=== PATIENT | male | born 1980 | race Caucasian/White ===

== ENCOUNTER 2018-10-25 00:05 | Inpatient (IN) | payer SELFPAY ==
[~2018-10-25] VITALS: Ht 177.8 cm; Wt 66.5 kg
[2018-10-25] VITALS (22 sets, daily range): BP systolic 76–147; BP diastolic 53–112
[2018-10-25] MEDS ORDERED: PROPOFOL DRIP (ICU) 100 ML IV STA (00:07)
--- NOTE | 2018-10-25 00:07 | NUR ---
DOCTOR DANICA GAVE 100 ML OF DIPRIVAN IVP. AT 0007
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
--- NOTE | 2018-10-25 00:30 | NUR ---
PT. HAS HAD 2 LITERS OF NORMAL SALINE INFUSED. ONE WAS BY EMS AND ONE BAG INFUSED WIDE OPEN AT 0030.
--- NOTE | 2018-10-25 00:45 | NUR ---
AT 0000 THE PT WAS BROUGHT BY EMS TO ER3. HE HAD A 7.5 TUBE ALREADY PLACED ECTO30, 24 AT THIS LIPS. PT. HAD BEEN FOUND ON THE COUCH BY FAMILY AND WAS UNRESPONSIVE. EMS REPORTED THE PATIENT HAD RECEIVED 120 OS SUCCS, AND .8 MG OF VEC. AT 2355. HE HAS AN IV IN THE RIGHT AC WITH NORMAL SALINE WIDE OPEN AND IT IS A 16 GAUGE, SALINE LOCKED. 0001 = DOCTOR DANICA IN TO SEE THE PATIENT. ORDERS WERE WRITTEN. DIPRIVAN 100 MG. GIVEN IVP BY DOCTOR MISHRA AT 0030. 0015 NG TUBE PLACED 0031 UNDERWOOD WAS PLACED DRAINING CLEAR LIGHT YELLOW URINE. AND UA WAS SENT TO THE LAB. LUNG SOUNDS ARE COARSE, FREQUENT SUCTIONING BE DONE. PT. WAS TAKEN TO CT VIA CART, NURSING STAFF, AND MONITORS. 0102 - VERSED 5 MG. IVP GIVEN THE PATIENT IS ATTEMPTING TO MOVED AROUND WHILE HE HAS BEEN SUCTIONED AND VENTILATED.
[2018-10-25] MEDS ORDERED: MIDAZOLAM 5 MG/5 ML (VERSED) VIAL ONE (00:59)
[2018-10-25] MEDS ORDERED: MIDAZOLAM 5 MG/5 ML (VERSED) VIAL IVP ONE (01:00)
--- NOTE | 2018-10-25 01:00 | NUR ---
PT. WAS GIVEN 5 MG. VERSED IVP PER DOCTORS ORDERS.
[2018-10-25] MEDS ORDERED: AMPICILLIN/SULBACTAM INJECTION 3 GM in NS (IVPB) 100 ML IV STA (01:02)
--- NOTE | 2018-10-25 01:09 | NUR ---
INCREASED THE RATE OF THE DIPRIVAN TO 20 ML PER HOUR VIA PUMP DO TO THE PATIENT FIGHTING THE ET TUBE VENTILATION.
[2018-10-25] MEDS ORDERED: KETAMINE HCL 100 MG/ML 5 ML VIAL IV STA (01:10)
--- NOTE | 2018-10-25 01:15 | NUR ---
DOCTOR GAVE 1.5 ML OF KETAMINE IVP
--- NOTE | 2018-10-25 01:34 | NUR ---
Doctor Villaseñor gave 150 mg. Ketamine ivp at 0134
--- NOTE | 2018-10-25 01:48 | NUR ---
Doctor Kasi gave 200 mg. Ketamine ivp
--- NOTE | 2018-10-25 01:48 | NUR ---
Cyndi CHOPRA pulled the 1000 cc bag of Normal Saline from the iv crash cart tray and it was hung by EMS and continued in route.
--- NOTE | 2018-10-25 01:55 | NUR ---
NG TUBE IS IN THE RIGHT NARE. 0130 PT. ALERT BREATHING TRYING TO PULL OUT THE TUBE AND THE UNDERWOOD. 0134 pT. WAS GIVEN 150 ML OF KETAMINE IV 0148 PT. GIVEN 200 MG. KETAMINE
[2018-10-25 02:44] LABS: COLOR,URINE PALE YELLOW
[2018-10-25 02:45] LABS: BACTERIA,URINE NEGATIVE /HPF; BILIRUBIN,URINE NEGATIVE (NEGATIVE); CLARITY,URINE CLEAR; GLUCOSE, URINE (UA) NEGATIVE (NEGATIVE); KETONES,URINE NEGATIVE (NEGATIVE); LEUKOCYTE ESTERASE ,URINE NEGATIVE (NEGATIVE); NITRITE,URINE NEGATIVE (NEGATIVE); PH,URINE 7.5 (5-9); PROTEIN,URINE NEGATIVE (NEGATIVE); UROBILINOGEN,URINE 0.2 MG/DL (NORMAL); WBC,URINE RARE /HPF
[2018-10-25] MEDS: D5 1/2 NS 1000 ML IV SOLUTION 1,000 ML IV SCH ×2 (03:00→10:14)
[2018-10-25] MEDS ORDERED: PROPOFOL DRIP (ICU) 100 ML IV SCH (03:15)
[2018-10-25] MEDS ORDERED: NS (IVPB) 50 ML ONE (03:19)
[2018-10-25] MEDS ORDERED: LORazepam INJ 2 MG/ML (ATIVAN) VIAL ONE (03:20)
[2018-10-25] MEDS ORDERED: fentaNYL INJECTION 100 MCG/2 ML AMP ONE (03:20)
[2018-10-25 03:21] LABS: BASOPHILS % (AUTO) 0 % (0-10); EOSINOPHILS # (AUTO) 0.3 10^3/uL (0.0-0.3); EOSINOPHILS % (AUTO) 2 % (0-10); HEMATOCRIT 43 % (40-54); HEMOGLOBIN 14.8 G/DL (13.3-17.7); LYMPHOCYTES # (AUTO) 1.4 X 10^3 (1.0-4.0); LYMPHOCYTES % (AUTO) 9 % (12-44); MEAN CORPUSCULAR HEMOGLOBIN 31 PG (25-34); MEAN CORPUSCULAR HGB CONC 34 G/DL (32-36); MEAN CORPUSCULAR VOLUME 89 FL (80-99); MEAN PLATELET VOLUME 10.7 FL (7.4-10.4); MONOCYTES # (AUTO) 1.2 X 10^3 (0.0-1.0); MONOCYTES % (AUTO) 8 % (0-12); NEUTROPHILS # (AUTO) 12.4 X 10^3 (1.8-7.8); NEUTROPHILS % (AUTO) 81 % (42-75); PLATELET COUNT 193 10^3/uL (130-400); RED CELL DISTRIBUTION WIDTH 12.9 % (10.0-14.5); WHITE BLOOD COUNT 15.3 10^3/uL (4.3-11.0)
[2018-10-25 03:23] LABS: ABG BASE EXCESS -4.4 MMOL/L (-2.5-2.5); ABG OXYGEN SATURATION 88 % (94-100); ABG PCO2 48 MMHG (35-45); ABG PO2 64 MMHG (79-93); ABG TCO2 23.1 MMOL/L (21.0-31.0)
[2018-10-25 03:24] LABS: ABG PH 7.27 (7.37-7.43); ALLENS TEST YES-POS; INSPIRED O2 50%; VENTILATOR YES
[2018-10-25 03:26] LABS: AMPHETAMINE SCREEN, URINE NEGATIVE (NEGATIVE); BARBITURATE SCREEN URINE POSITIVE (NEGATIVE); BENZODIAZEPINES SCREEN URINE NEGATIVE (NEGATIVE); CANNABINOID SCREEN, URINE POSITIVE (NEGATIVE); COCAINE SCREEN URINE NEGATIVE (NEGATIVE); METHADONE STAT NEGATIVE (NEGATIVE); METHAMPHETAMINE SCREEN URINE S NEGATIVE (NEGATIVE); OPIATE SCREEN URINE NEGATIVE (NEGATIVE); OXYCODONE STAT NEGATIVE (NEGATIVE); PROPOXYPHENE STAT NEGATIVE (NEGATIVE); TRICYCLIC ANTIDEPRESSANTS SCRE NEGATIVE (NEGATIVE)
[2018-10-25] MEDS ORDERED: RT-ALBUTEROL SULF 2.5 MG/3 ML PRE-MIX VIAL INH PRN (03:30)
[2018-10-25 03:37] LABS: BAND NEUTROPHILS 3 %; LYMPHOCYTES % (MANUAL) 7 %; NEUTROPHILS % (MANUAL) 82 %
[2018-10-25 03:38] LABS: BASOPHILS % (MANUAL) 0 %; CRENATED RBC SLIGHT; EOSINOPHILS % (MANUAL) 0 %; MONOCYTES % (MANUAL) 4 %; POIKILOCYTOSIS SLIGHT; REACTIVE LYMPHOCYTES 4 %
[2018-10-25 03:42] LABS: ALANINE AMINOTRANSFERASE 11 U/L (0-55); ALBUMIN 4.2 GM/DL (3.2-4.5); ALKALINE PHOSPHATASE 102 U/L (40-136); BILIRUBIN,DIRECT 0.2 MG/DL (0.0-0.3); BILIRUBIN,INDIRECT 0.1 MG/DL; BILIRUBIN,TOTAL 0.3 MG/DL (0.1-1.0); BUN/CREATININE RATIO 13; CALCIUM 8.4 MG/DL (8.5-10.1); CARBON DIOXIDE 20 MMOL/L (21-32); CHLORIDE 115 MMOL/L (98-107); CREATININE SERUM 0.84 MG/DL (0.60-1.30); GFR ESTIMATED > 60; GLUCOSE 92 MG/DL (70-105); MAGNESIUM 2.4 MG/DL (1.8-2.4); PHOSPHORUS 3.5 MG/DL (2.3-4.7); POTASSIUM 3.5 MMOL/L (3.6-5.0); SODIUM 146 MMOL/L (135-145); TOTAL PROTEIN 6.5 GM/DL (6.4-8.2); TRIGLYCERIDES 75 MG/DL (<150)
[2018-10-25 03:44] LABS: ACETAMINOPHEN < 10 UG/ML (10-30)
[2018-10-25] MEDS ORDERED: DEXMEDETOMIDINE INJECTION 200 MCG in NS (IVPB) 50 ML IV SCH (03:45)
[2018-10-25] MEDS ORDERED: fentaNYL INJECTION 100 MCG/2 ML AMP IV PRN (03:45)
[2018-10-25] MEDS ORDERED: fentaNYL INJECTION 100 MCG/2 ML AMP IV ONE (03:45)
[2018-10-25] MEDS ORDERED: LORazepam INJ 2 MG/ML (ATIVAN) VIAL IV PRN ×2 (03:45→05:30)
--- NOTE | 2018-10-25 04:08 | NUR ---
This RN called Poison control to notify of pt overdose.
[2018-10-25] MEDS: PANTOPRAZOLE 40 MG (PROTONIX) VIAL IV SCH ×2 (04:16→08:03)
[2018-10-25] MEDS: POTASSIUM CL 10MEQ/50ML IVPB 50 ML IV SCH ×5 (04:16→07:12)
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
[2018-10-25] MEDS ORDERED: fentaNYL (OMNICELL DRIP KIT ONLY) 250 MCG/5 ML AMP ONE (04:59)
[2018-10-25] MEDS ORDERED: NS (IVPB) 100 ML ONE (04:59)
[2018-10-25] MEDS: LACTATED RINGERS 1,000 ML IV SCH ×2 (05:00→06:37)
[2018-10-25] MEDS ORDERED: MAGNESIUM 1 GM/100 ML IVPB 100 ML IV ONE (05:00)
[2018-10-25 05:17] LABS: CREATINE KINASE 390 U/L (30-200); SALICYLATE < 5.0 MG/DL (5.0-20.0)
[2018-10-25] MEDS ORDERED: NORMAL SALINE INJ SCH (05:30)
[2018-10-25] MEDS ORDERED: FENTANYL INJ SCH (05:30)
[2018-10-25] MEDS ORDERED: POTASSIUM CL 10MEQ/50ML IVPB 50 ML IV SCH (06:00)
[2018-10-25] MEDS ORDERED: KCL 20 MEQ TAB (K-DUR) PO SCH (06:00)
[2018-10-25] MEDS ORDERED: fentaNYL INJECTION 500 MCG in NS (IVPB) 100 ML IV SCH (06:00)
[2018-10-25] MEDS ORDERED: MAGNESIUM 1 GM/100 ML IVPB 100 ML IV SCH (06:00)
[2018-10-25] MEDS ORDERED: LACTATED RINGERS 1,000 ML IV SCH (06:30)
[2018-10-25] MEDS ORDERED: MIDAZOLAM 2 MG/2 ML (VERSED) VIAL ONE (07:00)
[2018-10-25] MEDS ORDERED: LACTATED RINGERS 1,000 ML IV ONE (07:00)
--- NOTE | 2018-10-25 07:13 | Diagnostic Imaging Report ---
INDICATION: Respiratory failure Portable chest 2:59 AM There is an ET tube projecting over the trachea. NG tube enters the stomach. There is some right upper lobe atelectasis. IMPRESSION: Right upper lobe atelectasis has increased compared to previous days' comparison exam. Dictated by: Dictated on workstation # [id number]
[2018-10-25] MEDS ORDERED: MIDAZOLAM 5 MG/5 ML (VERSED) VIAL IVP NR (07:15)
--- NOTE | 2018-10-25 07:29 | History & Physical-Hospitalist ---
History of Present Illness HPI/Chief Complaint Pt is a 38yoCM who presented to the ER via EMS for respiratory failure potentially from overdose. He is intuabted and sedated and unable to provide any history. Per notes he has a known seizure disorder for which he takes phenobarbital. He made a comment to his girlfriend yesterday about "going to see his dad" (who is ). He was found later to be unresponsive and EMS was called and intubated him in the field. He was brought to the ER for evaluation and ultimately admitted for respiratory failure. Poison control was contacted and recommended q4 hour EKGs to monitor for QT prolongation. Dr Judd was consulted for vent management. Per Dr Judd family brought in prescription bottles and it appears patient has appropriate number of phenobarbital in his bottle but has also been noncompliant with meds so unsure how much medicine was potentially taken. Exam Limitations: clinical condition Date Seen 10/25/18 Time Seen by a Provider: 07:24 Attending Physician Luis Barkley MD PCP No,Local Physician Referring Physician Date of Admission Oct 25, 2018 at 02:08 Home Medications & Allergies Home Medications Reviewed patient Home Medication Reconciliation performed by pharmacy medication reconciliations distance learning technician and/or nursing. Patients Allergies have been reviewed. Allergies Allergies Coded Allergies morphine (Verified Allergy, Unknown, 10/25/18) Past Tdcftti-Wdvxiq-Yxprfe Hx Past Med/Social Hx: Reviewed Nursing Past Med/Soc Hx Patient Social History Marrital Status: single Smoking Status: Unknown if Ever Smoked Recent Foreign Travel: No Contact w/other who traveled: No Recent Infectious Disease Expo: No Past Medical History Neurological: Seizure Disorder Family History Reviewed Nursing Family Hx inubated- unable to provide FH Review of Systems ROS-Unable to Obtain: intubated Constitutional: see HPI Physical Exam Physical Exam Vital Signs Vital Signs - First Documented 10/25/18 10/25/18 10/25/18 00:05 00:07 03:05 Temp 97.2 Pulse 58 Resp 24 B/P (MAP) 151/103 (119) Pulse Ox 95 O2 Delivery Ambu-Bag O2 Flow Rate 15.00 FiO2 100 Capillary Refill : Less Than 3 Seconds Height, Weight, BMI Height: 5'10.00" Weight: 176lbs. oz. 79.208213uu; BMI Method:Estimated General Appearance: WD/WN, Other (intubated- being leak patcher for bronch) HEENT: Normal ENT Inspection, Moist Mucous Membranes, Other (OG in place) Neck: Normal Inspection, Non Tender Respiratory: Rhonci (R>L), Other (on vent) Cardiovascular: No JVD, No Murmur, Normal Peripheral Pulses, Bradycardia Gastrointestinal: Normal Bowel Sounds, Non Tender, Soft Genital/Rectal: Other (hart in place) Extremity: Normal Inspection, No Pedal Edema Neurologic/Psychiatric: Other (sedated, unresponsive) Skin: Normal Color, Warm/Dry Results Results/Procedures Labs Laboratory Tests 10/25/18 03:15 Patient resulted labs reviewed. Imaging: Reviewed Imaging Report Assessment/Plan Admission Diagnosis Acute Respiratory failure Admission Status: Inpatient Order (span 2 midnights) Reason for Inpatient Admission: ON vent Diagnosis/Problems Diagnosis/Problems (1) Acute respiratory failure Status: Acute Assessment & Plan: Intubated in the field Dr Judd consulted, appreciate recs Currently on PEEP of [address] If able to decrease Dr Judd considering wean Unsure if etiology due to overdose or possible seizure Qualifiers: Respiratory failure complication: hypoxia and hypercapnia Qualified Codes: J96.01 - Acute respiratory failure with hypoxia; J96.02 - Acute respiratory failure with hypercapnia (2) Seizure disorder Assessment & Plan: Treated with phenobarbital as an outpatient (3) Pneumonia Assessment & Plan: Bronch to be done today by Dr Judd Await cultures Add Zosyn following bronch This is not sepsis Qualifiers: Pneumonia type: aspiration pneumonia Aspiration pneumonia type: unspecified Laterality: right Lung location: upper lobe of lung Qualified Codes: J69.0 - Pneumonitis due to inhalation of food and vomit (4) Drug overdose Status: Acute Assessment & Plan: Unsure of how much phenobarbital was taken or if he actually overdoses given accurate pill count on current rx Level ordered UDS positive for it (which is appropriate) Poison Control contacted Qualifiers: Encounter type: initial encounter Injury intent: undetermined intent Qualified Codes: T50.904A - Poisoning by unspecified drugs, medicaments and biological substances, undetermined, initial encounter SARTHAK HSU MD Oct 25, 2018 07:29
[2018-10-25] MEDS ORDERED: PIPERACILLIN/TAZO 4.5 GM/NS 100 ML IV NR ×2 (07:45)
[2018-10-25] MEDS: RT-ALBUTEROL SULF 2.5 MG/3 ML PRE-MIX VIAL INH SCH ×3 (08:00→11:49)
[2018-10-25 08:02] LABS: ALANINE AMINOTRANSFERASE 10 U/L (0-55); ALBUMIN 3.3 GM/DL (3.2-4.5); ALKALINE PHOSPHATASE 81 U/L (40-136); BILIRUBIN,DIRECT 0.2 MG/DL (0.0-0.3); BILIRUBIN,INDIRECT 0.2 MG/DL; BILIRUBIN,TOTAL 0.4 MG/DL (0.1-1.0); TOTAL PROTEIN 5.2 GM/DL (6.4-8.2)
[2018-10-25 08:11] LABS: ACETAMINOPHEN < 10 UG/ML (10-30)
--- NOTE | 2018-10-25 08:20 | Diagnostic Imaging Report ---
INDICATION: Intubation. TIME OF EXAM: 11:08 PM No prior studies are available for comparison. FINDINGS: Right hemidiaphragm is elevated. ET tube has tip in good position above the ave. There is some infiltrate or atelectasis in the right base. Left lung is clear. There is no effusion or pneumothorax. IMPRESSION: 1. Satisfactory endotracheal tube placement. 2. Right hemidiaphragmatic elevation with right basilar infiltrate/atelectasis. Dictated by: Dictated on workstation # [id number]
--- NOTE | 2018-10-25 08:21 | Diagnostic Imaging Report ---
PROCEDURE: CT head and CT cervical spine without contrast. TECHNIQUE: Multiple contiguous axial images were obtained through the brain and cervical spine without the use of intravenous contrast. Sagittal and coronal reformations through the cervical spine were then performed. INDICATION: Intubated in field. Possible overdose. CORRELATION STUDY: None FINDINGS: CT HEAD: The ventricles and sulci appearing age-appropriate. No abnormal areas of decreased attenuation to suggest edema. No midline shift or mass effect. No intracranial hemorrhage. Basilar cisterns are maintained. Bony calvarium intact. Nasogastric tube is noted over the right side with rather prominent right-sided nasal spur. There is opacification throughout the nasal cavity and partial opacification through multiple ethmoid air cells. Asymmetric scalp edema noted on the right. CT CERVICAL SPINE: Endotracheal tube and nasogastric tube are present. Reformatted images show relatively normal alignment to be present. The cervical and vertebral body heights are maintained. Moderate disc space narrowing with endplate osteophyte formation and cystic change at the C6-C7 level. Mild endplate spurring with minimal encroachment on the neuroforamina without significant osseous narrowing of the canal and/or foramina. Odontoid intact. The posterior elements intact and in normal alignment. Lung apices unremarkable. Curvilinear density surrounding the endotracheal tube is noted only partially visualized. This may reflect portions of the cuff. IMPRESSION: CT HEAD: 1. Negative for acute intracranial abnormality. CT CERVICAL SPINE: 1. Negative for acute fracture or traumatic subluxation. 2. Prominent asymmetric cervical spine degenerative disc disease C6-C7 level. A preliminary report was provided by [employer] [facility]. Dictated by: Dictated on workstation # [id number]
--- NOTE | 2018-10-25 08:23 | Diagnostic Imaging Report ---
INDICATION: ET tube placement. TIME OF EXAM: 7:51 AM Correlation is made with prior study earlier same day. FINDINGS: ET tube is in good position above the ave. There has been improved aeration to the right upper lobe since earlier. There is some mild residual right perihilar and right basilar atelectasis. Left lung is fairly clear. No effusion or pneumothorax is seen. IMPRESSION: Improved aeration on the right when compared with study earlier the same day. Dictated by: Dictated on workstation # [id number]
--- NOTE | 2018-10-25 08:47 | NUR ---
changed to heated vent circuit @ this time.
[2018-10-25] MEDS ORDERED: CHLORHEXIDINE 0.12% SOLN 15 ML (PERIDEX) UDC PO SCH (09:00)
[2018-10-25] MEDS ORDERED: LIDOCAINE PF 1% 2 ML VIAL (OR ONLY) IJ ONE (09:09)
--- NOTE | 2018-10-25 09:40 | NUR ---
DR VELASQUEZ PREVIOUSLY IN ROOM TO SEE PT, PT ALERT AND FOLLOWING COMMANDS, DR VELASQUEZ GAVE ORDERS TO EXTUBATE PT. THIS RN NOTIFIED RT, PT EXTUBATED AT THIS TIME AND PLACED ON 2L O2/NC. PT INTRODUCED TO SURROUNDINGS AND SITUATION. WILL CONTINUE TO MONITOR.
[2018-10-25 09:43] LABS: BODY FLUID SOURCE BRONCH RUL
[2018-10-25 09:44] LABS: BODY FLUID APPEARENCE MOD CLDY; LYMPHOCYTES,BODY FLUID 3 %
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
--- NOTE | 2018-10-25 09:50 | NUR ---
PT EXTUBATED AT THIS TIME. PER DR VELASQUEZ'S REQUEST. PLACED ON 2LPM NC , PT TOLERATING WELL.
[2018-10-25] MEDS ORDERED: PHEN97.2 PO (10:10)
--- NOTE | 2018-10-25 10:19 | NUR ---
SPOKE WITH THE PATIENT ABOUT HIS MEDICATIONS. HE STATES HE TAKES PHENOBARBITAL BID HOWEVER HE HAS MISSED SOME DOSES THE PAST DAY OR TWO. HE STATES HE NORMALLY TAKES IT REGULARLY BUT HAS BEEN KNOWN TO MISS A DOSE HERE AND THERE. HE STATES HE HAS NOT TAKEN CLONAZEPAM FOR ABOUT 8 MONTHS. I SEARCHED IN [facility] AND THE PATIENT DID NOT RETURN ANY RESULTS. HE STATES HE DOES NOT TAKE ANYTHING OTC.
[2018-10-25] MEDS ORDERED: PHENobarbital 97.2 MG (1-1/2 GRAIN) TABLET PO SCH (10:30)
[2018-10-25] MEDS ORDERED: NS 1000 ML IV BAG IV ONE (11:18)
--- NOTE | 2018-10-25 11:20 | NUR ---
PT REQUESTING TO LEAVE. THIS RN SPOKE WITH BOTH DR VELASQUEZ AND DR HSU, BOTH DRS STATED THEY ARE NOT READY TO DISCHARGE PT AND PT WOULD HAVE TO LEAVE AMA IF HE DESIRED TO GO. THIS INFORMATION PASSED ON TO PT. PT STATES IS LEAVING. BOTH DRS NOTIFIED.
[2018-10-25] MEDS ORDERED: inSUlin ASPART (NovoLOG) 1 UNIT/0.01 ML (CHARGE PER UNIT) SQ SCH (12:00)
[2018-10-25] MEDS ORDERED: fentaNYL 1,250 MCG/NS 250 ML DRIP IV SCH ×2 (12:00)
--- NOTE | 2018-10-25 13:15 | NUR ---
PT LEFT THE UNIT AMBULATORY ACCOMPANIED BY PT FRIEND. HOME PHENOBARBITAL SENT WITH PT.
[2018-10-25] MEDS ORDERED: PIPERACILLIN/TAZOBACTAM (BULK) 4.5 GM in NS (IVPB) 100 ML IV SCH (14:00)
--- NOTE | 2018-10-25 14:00 | NUR ---
75ML FENTANYL GTT WASTED. WASTE WITNESSED BY THOMAS CHOPRA.
== END 2018-10-25 13:15 | disposition left against medical advice (07) | DRG 917 ==
LOC: ER FS 00:08 → ICU 02:08
PROVIDERS: ADMIT Internal Medicine; ATTEND Internal Medicine
PROC: 5A1935Z Respiratory Ventilation, Less than 24 Consecutive Hours (ICD-10-PCS; principal; 2018-10-25)
DX: T50.901A Poisoning by unspecified drugs, medicaments and biological substances, accidental (unintentional), initial encounter (principal); J96.01 Acute respiratory failure with hypoxia; J96.02 Acute respiratory failure with hypercapnia; J69.0 Pneumonitis due to inhalation of food and vomit; E86.0 Dehydration; G40.909 Epilepsy, unspecified, not intractable, without status epilepticus
CPT/HCPCS: 36415; 51702; 70450; 71045; 72125; 80053; 80076; 80306; 80320; 80329; 81000; 82550; 82805; 82962; 83735; 84100; 84478; 85007; 85027; 87015; 87070; 87077; 87081; 87101; 87116; 87205; 87206; 89051; 93005; 94002; 94640; 94799; 99291

== ENCOUNTER → 2022-10-13 | Outpatient (CLI) | payer OTHER ==
[~2022-10-13] MED LIST: PHEN97.2 PO
--- NOTE | 2022-10-13 13:33 | Diagnostic Imaging Report ---
INDICATION: Lower back pain. COMPARISON: None FINDINGS: Frontal and lateral views of the lumbar spine were obtained. There is transitional lumbosacral anatomy with partial lumbarization of the S1 vertebral body. Static alignment is grossly maintained. There is no evidence of jumped facets. Vertebral body heights are preserved. There is no acute fracture. No unexpected radio opaque foreign bodies are seen. IMPRESSION: 1. No radiographic evidence of acute fracture or dislocation of the lumbar spine. Dictated by: Dictated on workstation # [id number]
--- NOTE | 2022-10-13 13:35 | Diagnostic Imaging Report ---
INDICATION: Shoulder pain COMPARISON: None. FINDINGS: 3 views of the left shoulder were obtained. There is no fracture, dislocation, or other acute bony abnormality identified. The soft tissues appear unremarkable. No radiopaque foreign body is identified. The visualized portions of the left lung are clear. IMPRESSION: No acute fractures or dislocations of the left shoulder. Dictated by: Dictated on workstation # [id number]
== END ==
LOC: RAD 10:24
PROVIDERS: ATTEND Family Medicine
DX: M54.50 Low back pain, unspecified (principal); M25.512 Pain in left shoulder
CPT/HCPCS: 72100; 73030

== ENCOUNTER 2022-12-27 19:39 | Emergency (ER) | payer SELFPAY ==
[~2022-12-27] VITALS: Ht 172 cm; Wt 63.0 kg
--- NOTE | 2022-12-27 19:48 | ED Chest Pain ---
General Stated Complaint: CP History of Present Illness Date Seen by Provider: December 27, 2022 Time Seen by Provider: 19:39 Initial Comments 43-year-old male with PMH of SZD on phenobarbital and anxiety, is brought in by EMS after he started developing chest pain which is radiating down to his left arm. Patient was cutting grass all afternoon in the heat without drinking much water and started feeling chest pain. At first patient thought he might be having the beginning of a seizure so he took a tablet of phenobarbital just in case. But patient did not have a seizure. Patient appears anxious and is diaphoretic and has grass and dirt all over him. Denies palpitations, shortness of breath, abdominal pain, nausea and vomiting, diarrhea. Denies any cardiac history. Allergies and Home Medications Allergies Coded Allergies: morphine (Verified Allergy, Unknown, 10/25/18) Patient Home Medication List Home Medication List Reviewed: Yes Phenobarbital (Phenobarbital) 97.2 Mg Tablet, 97.2 MG PO BID, (Reported) Entered as Reported by: AUDIE SHABAZZ on 10/25/18 1010 Review of Systems Review of Systems Constitutional: no symptoms reported EENTM: No Symptoms Reported Respiratory: No Symptoms Reported Cardiovascular: Chest Pain Gastrointestinal: No Symptoms Reported Genitourinary: No Symptoms Reported Musculoskeletal: no symptoms reported Psychiatric/Neurological: Anxiety Endocrine: No Symptoms Reported Hematologic/Lymphatic: No Symptoms Reported Past Ywhmmws-Kgitwe-Udxduj Hx Past Medical History Seizure Disorder Family Medical History inubated- unable to provide FH Physical Exam Vital Signs Vital Signs - First Documented 12/27/22 19:44 Temp 36.7 Pulse 75 Resp 18 B/P (MAP) 128/93 (105) Pulse Ox 96 O2 Delivery Room Air Capillary Refill : Height, Weight, BMI Height: 5'10.00" Weight: 146lbs. 9.0oz. 66.330796lt; 21.0 BMI Method:Estimated General Appearance: No Apparent Distress, Anxious, Thin, Other (Patient is diaphoretic) HEENT: PERRL/EOMI, Normal ENT Inspection, Other (Dry mucous membranes) Neck: Full Range of Motion, Normal Inspection, Non Tender, Supple Respiratory: Chest Non Tender, Lungs Clear, Normal Breath Sounds Cardiovascular: Regular Rate, Rhythm, No Edema, No Murmur Gastrointestinal: Normal Bowel Sounds, Non Tender, Soft Extremity: Normal Range of Motion, No Calf Tenderness Neurologic/Psychiatric: Alert, Oriented x3, No Motor/Sensory Deficits, Normal Mood/Affect, spiritual advisor II-XII Norm as Tested Skin: Normal Color, Damp, Diaphoresis Procedures/Interventions Date of ETT Placement: Oct 25, 2018 Progress/Results/Core Measures Results/Orders Lab Results Laboratory Tests Test 12/27/22 19:50 12/27/22 20:10 Range/Units White Blood Count 8.1 4.3-11.0 10^3/uL Red Blood Count 4.38 4.30-5.52 10^6/uL Hemoglobin 13.4 13.3-17.7 g/dL Hematocrit 39 L 40-54 % Mean Corpuscular Volume 89 80-99 fL Mean Corpuscular Hemoglobin 31 25-34 pg Mean Corpuscular Hemoglobin Concent 35 32-36 g/dL Red Cell Distribution Width 12.6 10.0-14.5 % Platelet Count 225 130-400 10^3/uL Mean Platelet Volume 10.7 9.0-12.2 fL Immature Granulocyte % (Auto) 0 % Neutrophils (%) (Auto) 56 42-75 % Lymphocytes (%) (Auto) 24 12-44 % Monocytes (%) (Auto) 11 0-12 % Eosinophils (%) (Auto) 7 0-10 % Basophils (%) (Auto) 1 0-10 % Neutrophils # (Auto) 4.5 1.8-7.8 10^3/uL Lymphocytes # (Auto) 2.0 1.0-4.0 10^3/uL Monocytes # (Auto) 0.9 0.0-1.0 10^3/uL Eosinophils # (Auto) 0.6 H 0.0-0.3 10^3/uL Basophils # (Auto) 0.1 0.0-0.1 10^3/uL Immature Granulocyte # (Auto) 0.0 0.0-0.1 10^3/uL Sodium Level 140 135-145 MMOL/L Potassium Level 3.5 L 3.6-5.0 MMOL/L Chloride Level 104 98-107 MMOL/L Carbon Dioxide Level 25 21-32 MMOL/L Anion Gap 11 5-14 MMOL/L Blood Urea Nitrogen 13 7-18 MG/DL Creatinine 0.85 0.60-1.30 MG/DL Estimat Glomerular Filtration Rate 110 BUN/Creatinine Ratio 15 Glucose Level 96 70-105 MG/DL Calcium Level 9.0 8.5-10.1 MG/DL Corrected Calcium 8.9 8.5-10.1 MG/DL Magnesium Level 2.0 1.6-2.4 MG/DL Total Bilirubin < 0.2 0.1-1.0 MG/DL Aspartate Amino Transf (AST/SGOT) 14 5-34 U/L Alanine Aminotransferase (ALT/SGPT) 8 0-55 U/L Alkaline Phosphatase 137 H 40-136 U/L Troponin I < 0.30 <0.30 NG/ML Total Protein 6.3 L 6.4-8.2 GM/DL Albumin 4.1 3.2-4.5 GM/DL Serum Alcohol < 10 <10 MG/DL Urine Color YELLOW Urine Clarity CLEAR Urine pH 6.0 5-9 Urine Specific [place] 1.020 1.016-1.022 Urine Protein NEGATIVE NEGATIVE Urine Glucose (UA) NEGATIVE NEGATIVE Urine Ketones NEGATIVE NEGATIVE Urine Nitrite NEGATIVE NEGATIVE Urine Bilirubin NEGATIVE NEGATIVE Urine Urobilinogen 0.2 < = 1.0 MG/DL Urine Leukocyte Esterase NEGATIVE NEGATIVE Urine RBC (Auto) NEGATIVE NEGATIVE Urine RBC NONE /HPF Urine WBC 0-2 /HPF Urine Squamous Epithelial Cells NONE /HPF Urine Crystals NONE /LPF Urine Bacteria NEGATIVE /HPF Urine Casts NONE /LPF Urine Mucus SMALL H /LPF Urine Culture Indicated NO Urine Opiates Screen NEGATIVE NEGATIVE Urine Oxycodone Screen NEGATIVE NEGATIVE Urine Methadone Screen NEGATIVE NEGATIVE Urine Propoxyphene Screen NEGATIVE NEGATIVE Urine Barbiturates Screen POSITIVE H NEGATIVE Ur Tricyclic Antidepressants Screen NEGATIVE NEGATIVE Urine Phencyclidine Screen NEGATIVE NEGATIVE Urine Amphetamines Screen NEGATIVE NEGATIVE Urine Methamphetamines Screen NEGATIVE NEGATIVE Urine Benzodiazepines Screen POSITIVE H NEGATIVE Urine Cocaine Screen NEGATIVE NEGATIVE Urine Cannabinoids Screen POSITIVE H NEGATIVE My Orders Orders - DARWIN PEDRAZA MD Chest 1 View Ap/Pa Only (12/27/22 19:48) Ed Iv/Invasive Line Start (12/27/22 19:50) Ns Iv 1000 Ml (Sodium Chloride 0.9%) (12/27/22 20:00) Alcohol (12/27/22 19:50) Cbc With Automated Diff (12/27/22 19:50) Comprehensive Metabolic Panel (12/27/22 19:50) Drug Screen Stat (Urine) (12/27/22 19:50) Magnesium (12/27/22 19:50) Ua Culture If Indicated (12/27/22 19:50) Troponin I Fs (12/27/22 19:50) Continuous Ekg Monitoring (12/27/22 19:52) Ekg Tracing (12/27/22 19:52) Vital Signs/I&O 12/27/22 19:44 Temp 36.7 Pulse 75 Resp 18 B/P (MAP) 128/93 (105) Pulse Ox 96 O2 Delivery Room Air Progress Progress Note : Progress Note 1. ACS RULE OUT: DEHYDRATION - CXR: no acute changes - EKG: non-ischemic - Troponin: undetected - CBC/ CMP: unremarkable - UA: no infection - UDS:positive for barbiturates/ benzos/ marijuana - ASA 324mg given by EMS - In the ER, chest pain has resolved - NS IVF bolus STAT - Pt denies marijuana use and vapes low dose marijuana - Pt felt much better after receiving fluids - Advised pt to stay hydrated - Pt has a neurologist appointment next week and a PCP appointment next month. Advised to keep appointment -The patient was seen in the ED, and treated appropriately to presentation at a specific point in time. Patient is informed that there is a possibility that disease and illness can evolve and change in acuity rapidly or slowly after jessica johnson is discharged from the ER. Precautionary advice given to the patient for immediate return to ER if symptoms worsen or do not resolve, and to seek emergency care sooner rather than later. Pt also advised on the importance of PCP follow up and compliance with management and follow up plan with PCP and/or specialist, as this is part of the management plan. Pt verbally expressed understanding. Initial ECG Impression Date: December 27, 2022 Initial ECG Impression Time: 19:44 Initial ECG Rate: 76 Initial ECG Rhythm: Normal Sinus Initial ECG Intervals: Normal Initial ECG Impression: Normal Initial ECG Comparisson: No Previous ECG Available Diagnostic Imaging Diagonstic Imaging: Xray Plain Films/CT/US/NM/MRI: chest Comments [facility] [place], [place] NAME: DANNI MORALES [facility] REC#: [id number] PT STATUS: REG ER : 01/21/1979 PHYSICIAN: DARWIN PEDRAZA MD ADMIT DATE: 12/27/22/ER FS Draft Date of Exam:12/27/22 CHEST 1 VIEW AP/PA ONLY EXAMINATION: Chest 1 view HISTORY: Chest pain. COMPARISON: 10/25/2018. FINDINGS: The lung volumes are normal. No focal consolidation is seen. No large pleural effusion or pneumothorax is seen. The cardiomediastinal silhouette is normal in size and contour. No acute osseous abnormality is seen. IMPRESSION: 1. No acute pleuroparenchymal process. Dictated on workstation # [id number] Dict: 12/27/222005 Trans: 12/27/222006 [facility] [id number] Interpreted by: AMANDA TRACY DO Electronically signed by: Departure Impression Primary Impression: Ruled out for myocardial infarction Additional Impression: Dehydration after exertion Disposition: 01 HOME, SELF-CARE Condition: Improved Departure-Patient Inst. Referrals: NO,LOCAL PHYSICIAN (PCP/Family) Primary Care Physician Patient Instructions: Chest Pain That Is Not Caused by the Heart (DC), Dehydration, Adult (DC), Why Water Is Important to Health Add. Discharge Instructions: - Advised pt to stay hydrated - Pt has a neurologist appointment next week and a PCP appointment next month. Advised to keep appointment DARWIN PEDRAZA MD December 27, 2022 19:48
[2022-12-27] MEDS ORDERED: NS IV 1000 ML 1,000 ML IV SCH (20:00)
[2022-12-27 20:05] LABS: BASOPHILS # (AUTO) 0.1 10^3/uL (0.0-0.1); BASOPHILS % (AUTO) 1 % (0-10); EOSINOPHILS # (AUTO) 0.6 10^3/uL (0.0-0.3); EOSINOPHILS % (AUTO) 7 % (0-10); HEMATOCRIT 39 % (40-54); HEMOGLOBIN 13.4 g/dL (13.3-17.7); LYMPHOCYTES % (AUTO) 24 % (12-44); MEAN CORPUSCULAR HEMOGLOBIN 31 pg (25-34); MEAN CORPUSCULAR HGB CONC 35 g/dL (32-36); MEAN CORPUSCULAR VOLUME 89 fL (80-99); MEAN PLATELET VOLUME 10.7 fL (9.0-12.2); MONOCYTES # (AUTO) 0.9 10^3/uL (0.0-1.0); MONOCYTES % (AUTO) 11 % (0-12); NEUTROPHILS # (AUTO) 4.5 10^3/uL (1.8-7.8); NEUTROPHILS % (AUTO) 56 % (42-75); PLATELET COUNT 225 10^3/uL (130-400); WHITE BLOOD COUNT 8.1 10^3/uL (4.3-11.0)
--- NOTE | 2022-12-27 20:08 | Diagnostic Imaging Report ---
EXAMINATION: Chest 1 view HISTORY: Chest pain. COMPARISON: 10/25/2018. FINDINGS: The lung volumes are normal. No focal consolidation is seen. No large pleural effusion or pneumothorax is seen. The cardiomediastinal silhouette is normal in size and contour. No acute osseous abnormality is seen. IMPRESSION: 1. No acute pleuroparenchymal process. Dictated by: Dictated on workstation # [id number]
[2022-12-27 20:20] LABS: ALANINE AMINOTRANSFERASE 8 U/L (0-55); ALKALINE PHOSPHATASE 137 U/L (40-136); BILIRUBIN,TOTAL < 0.2 MG/DL (0.1-1.0); BUN/CREATININE RATIO 15; CARBON DIOXIDE 25 MMOL/L (21-32); CHLORIDE 104 MMOL/L (98-107); CREATININE SERUM 0.85 MG/DL (0.60-1.30); GFR ESTIMATED 110; GLUCOSE 96 MG/DL (70-105); POTASSIUM 3.5 MMOL/L (3.6-5.0); SODIUM 140 MMOL/L (135-145)
[2022-12-27 20:21] LABS: ALBUMIN 4.1 GM/DL (3.2-4.5); TOTAL PROTEIN 6.3 GM/DL (6.4-8.2)
[2022-12-27 20:30] LABS: BILIRUBIN,URINE NEGATIVE (NEGATIVE); CLARITY,URINE CLEAR; COLOR,URINE YELLOW; GLUCOSE, URINE (UA) NEGATIVE (NEGATIVE); KETONES,URINE NEGATIVE (NEGATIVE); LEUKOCYTE ESTERASE ,URINE NEGATIVE (NEGATIVE); NITRITE,URINE NEGATIVE (NEGATIVE); PROTEIN,URINE NEGATIVE (NEGATIVE)
[2022-12-27 20:35] LABS: BACTERIA,URINE NEGATIVE /HPF; WBC,URINE 0-2 /HPF
[2022-12-27 20:41] LABS: AMPHETAMINE SCREEN, URINE NEGATIVE (NEGATIVE); BARBITURATE SCREEN URINE POSITIVE (NEGATIVE); BENZODIAZEPINES SCREEN URINE POSITIVE (NEGATIVE); CANNABINOID SCREEN, URINE POSITIVE (NEGATIVE); COCAINE SCREEN URINE NEGATIVE (NEGATIVE); METHADONE STAT NEGATIVE (NEGATIVE); OPIATE SCREEN URINE NEGATIVE (NEGATIVE); OXYCODONE STAT NEGATIVE (NEGATIVE); PROPOXYPHENE STAT NEGATIVE (NEGATIVE); TRICYCLIC ANTIDEPRESSANTS SCRE NEGATIVE (NEGATIVE)
[2022-12-27 21:05] VITALS: BP 134/90
== END 2022-12-27 21:06 | disposition home or self-care (01) ==
LOC: EDUNIT# 19:39 → ER FS 19:41
DX: E86.0 Dehydration (principal); R07.9 Chest pain, unspecified; G40.909 Epilepsy, unspecified, not intractable, without status epilepticus; Z79.899 Other long term (current) drug therapy; Z28.310 Unvaccinated for COVID-19
CPT/HCPCS: 36415; 71045; 80053; 80306; 81000; 83735; 84484; 85025; 93005; 93041; 99284; G0480; 80320